=== PATIENT | female | born 1985 | race American Indian/Alaskan Native ===

== ENCOUNTER 2017-02-24 16:03 | Inpatient (IN) | payer MEDICAID ==
[2017-02-24] MEDS ORDERED: NORMODYNE IV ONE ×4 (16:16→17:13)
--- NOTE | 2017-02-24 16:38 | Emergency Department Report ---
ED General Adult HPI - General Chief complaint: High BP Stated complaint: BLOOD PRESSURE Time Seen by Provider: 02/24/17 16:28 Source: patient, EMS (ems notes not available at time of chart dictation), RN notes reviewed Mode of arrival: Ambulatory Limitations: No Limitations - History of Present Illness Initial comments: This is a 31-year-old female. She is previously known to me. Her pbx repairer is Dr. Rivera. The patient is 4, para 1. lmp September 22. Past medical history includes preeclampsia, hypertension, she is currently on methyldopa, just started last week. The patient is sent to the ER by her rubber compounder supervisor for evaluation of hypertension. The patient has no headache, neck pain, chest pain, abdominal pain and shortness of breath. She denies vaginal bleeding, irritative and obstructive urinary symptoms. -: unknown Consistency: constant Improves with: none Worsens with: none Associated Symptoms: denies other symptoms. denies: confusion, chest pain, cough, diaphoresis, fever/chills, headaches, loss of appetite, malaise, nausea/ vomiting, rash, seizure, shortness of breath, syncope, weakness - Related Data Allergies Allergy/AdvReac Type Severity Reaction Status Date / Time No Known Allergies Allergy Unverified 02/24/17 16:18 ED Review of Systems ROS: Stated complaint: BLOOD PRESSURE Other details as noted in HPI Constitutional: denies: fever Eyes: denies: vision change ENT: denies: epistaxis Respiratory: denies: cough Cardiovascular: denies: chest pain Gastrointestinal: denies: vomiting Genitourinary: denies: dysuria Musculoskeletal: denies: back pain Skin: denies: lesions Neurological: denies: headache Psychiatric: denies: anxiety ED Past Medical Hx - Past Medical History Hx Hypertension: Yes - Social History Smoking Status: Never Smoker ED Physical Exam - General Limitations: No Limitations General appearance: alert, in no apparent distress - Head Head exam: Present: atraumatic, normocephalic - Eye Eye exam: Present: normal appearance, PERRL, EOMI. Absent: nystagmus - ENT ENT exam: Present: normal exam, normal orophraynx, mucous membranes moist, normal external ear exam - Neck Neck exam: Present: normal inspection, full ROM. Absent: tenderness, meningismus - Respiratory Respiratory exam: Present: normal lung sounds bilaterally. Absent: respiratory distress, wheezes, rales, rhonchi, stridor, chest wall tenderness, accessory muscle use, decreased breath sounds - Cardiovascular Cardiovascular Exam: Present: regular rate, normal rhythm, normal heart sounds. Absent: bradycardia, tachycardia, irregular rhythm, systolic murmur, diastolic murmur, rubs, gallop - GI/Abdominal GI/Abdominal exam: Present: soft, other (uterus is appropriate for dates.). Absent: distended, tenderness, guarding, rebound, rigid, pulsatile mass - Extremities Exam Extremities exam: Present: normal inspection, full ROM, normal capillary refill , pedal edema. Absent: calf tenderness - Back Exam Back exam: Present: normal inspection, full ROM. Absent: tenderness, CVA tenderness (R), CVA tenderness (L), muscle spasm, paraspinal tenderness, vertebral tenderness - Neurological Exam Neurological exam: Present: alert, oriented X3, normal gait, other (Extraocular movements intact. Tongue midline. No facial droop. Facial sensation intact to light touch in the V1, V2, V3 distribution bilaterally. 5 and 5 strength in 4 extremities.. Sensation is intact to light touch in 4 extremities.). Absent : motor sensory deficit - Psychiatric Psychiatric exam: Present: normal affect, normal mood - Skin Skin exam: Present: warm, dry, intact, normal color. Absent: rash ED Course Vital Signs 02/24/17 02/24/17 02/24/17 16:04 16:10 16:44 Temperature 98.0 F Pulse Rate 64 Respiratory 20 20 16 Rate Blood Pressure 210/120 Blood Pressure 205/99 [Left] O2 Sat by Pulse 100 100 100 Oximetry 02/24/17 02/24/17 02/24/17 18:41 19:00 19:51 Temperature Pulse Rate 65 108 H 90 Respiratory 16 16 Rate Blood Pressure 187/104 Blood Pressure 194/105 178/109 [Left] O2 Sat by Pulse 100 100 Oximetry 02/24/17 02/24/17 02/24/17 20:20 20:39 21:27 Temperature Pulse Rate 90 90 90 Respiratory 20 16 Rate Blood Pressure 158/93 Blood Pressure 158/93 178/108 [Left] O2 Sat by Pulse 100 100 Oximetry 02/24/17 02/24/17 02/24/17 22:24 22:43 23:24 Temperature Pulse Rate 93 H 79 82 Respiratory 16 Rate Blood Pressure 200/122 200/122 Blood Pressure 170/100 [Left] O2 Sat by Pulse 100 Oximetry 02/24/17 23:39 Temperature Pulse Rate 87 Respiratory 16 Rate Blood Pressure Blood Pressure 186/100 [Left] O2 Sat by Pulse 100 Oximetry - Reevaluation(s) Reevaluation #1: 02/24/17 19:10 Differential diagnosis: hypertension, preeclampsia Assessment and plan: 31-year-old female who was found to be hypertensive, lower extremity edema, proteinuria, concerning for preeclampsia. She is started on magnesium sulfate infusion, given multiple doses of IV labetalol, and is initiated on a labetalol drip. Heart tones are noted on examination. The case is discussed with her covering rubber compounder supervisor, Dr. Genna Rivera, who authorizes admission to the labor and delivery unit for monitoring and further blood pressure control. The patient is asymptomatic at this time, has no chest pain or shortness of breath. ED Medical Decision Making - Lab Data Result diagrams: 02/24/17 16:38 02/24/17 16:38 Vital Signs 02/24/17 02/24/17 02/24/17 16:04 16:10 16:44 Temperature 98.0 F Pulse Rate 64 Respiratory 20 20 16 Rate Blood Pressure 210/120 Blood Pressure 205/99 [Left] O2 Sat by Pulse 100 100 100 Oximetry 02/24/17 18:41 Temperature Pulse Rate 65 Respiratory Rate Blood Pressure 187/104 Blood Pressure [Left] O2 Sat by Pulse Oximetry Labs 02/24/17 02/24/17 02/24/17 16:38 16:38 16:38 WBC 13.7 H RBC 5.51 H Hgb 12.8 Hct 40.3 MCV 73 L MCH 23 L MCHC 32 RDW 15.9 H Plt Count 250 Lymph % (Auto) 26.4 [place] % (Auto) 8.2 H Eos % (Auto) 0.5 Baso % (Auto) 0.2 Lymph # 3.6 [place] # 1.1 H Eos # 0.1 Baso # 0.0 Seg Neutrophils % 64.7 Seg Neutrophils # 8.9 H Fibrinogen Sodium 138 Potassium 4.5 Chloride 102.1 Carbon Dioxide 24 Anion Gap 16 BUN 10 Creatinine 0.6 L Estimated GFR > 60 BUN/Creatinine Ratio 16.66 Glucose 84 Calcium 8.9 Total Bilirubin Direct Bilirubin Indirect Bilirubin AST ALT Alkaline Phosphatase Total Protein Albumin Albumin/Globulin Ratio HCG, Quant Urine Color Yellow Urine Turbidity Clear Urine pH 6.0 Ur Specific [place] 1.015 Urine Protein 100 mg/dl Urine Glucose (UA) Neg Urine Ketones Neg Urine Blood Neg Urine Nitrite Neg Urine Bilirubin Neg Urine Urobilinogen < 2.0 Ur Leukocyte Esterase Neg Urine WBC (Auto) 4.0 Urine RBC (Auto) 0.0 U Epithel Cells (Auto) 2.0 Urine Mucus Few 02/24/17 02/24/17 02/24/17 16:38 16:38 16:38 WBC RBC Hgb Hct MCV MCH MCHC RDW Plt Count Lymph % (Auto) [place] % (Auto) Eos % (Auto) Baso % (Auto) Lymph # [place] # Eos # Baso # Seg Neutrophils % Seg Neutrophils # Fibrinogen 583 H Sodium Potassium Chloride Carbon Dioxide Anion Gap BUN Creatinine Estimated GFR BUN/Creatinine Ratio Glucose Calcium Total Bilirubin 0.20 Direct Bilirubin < 0.2 Indirect Bilirubin 0.0 AST 19 ALT 17 Alkaline Phosphatase 72 Total Protein 6.7 Albumin 3.1 L Albumin/Globulin Ratio 0.9 HCG, Quant 10023 H Urine Color Urine Turbidity Urine pH Ur Specific [place] Urine Protein Urine Glucose (UA) Urine Ketones Urine Blood Urine Nitrite Urine Bilirubin Urine Urobilinogen Ur Leukocyte Esterase Urine WBC (Auto) Urine RBC (Auto) U Epithel Cells (Auto) Urine Mucus Critical Care Time: Yes Critical care time in (mins) excluding proc time.: 35 Critical care attestation.: If time is entered above; I have spent that time in minutes in the direct care of this critically ill patient, excluding procedure time. Critical Care Time: Critical care time included multiple bedside evaluations, interpretation of laboratory studies, time spent managing a patient with preecclampsia requiring consultation with gynecology, infusion of IV labetalol. This does not include procedure time. ED Disposition Clinical Impression: Hypertension in , preeclampsia Qualifiers: Trimester: unspecified trimester Qualified Code(s): O14.90 - Unspecified pre- eclampsia, unspecified trimester Disposition: OP ADMITTED IP TO THIS HOSP Is pt being admited?: Yes Condition: Good
[2017-02-24] MEDS ORDERED: MAGNESIUM SULFATE 40GM/1000ML 40 GM/1,000 ML BAG IV SCH (17:00)
[2017-02-24 17:02] LABS: Bilirubin,Urine NEG (Negative); Blood,Urine NEG (Negative); Ketones,Urine NEG (Negative); Leukocyte Esterase,Urine NEG (Negative); Mucus,Urine FEW /HPF; Nitrite,Urine NEG (Negative); Urobilinogen,Urine < 2.0 mg/dL (<2.0)
[2017-02-24 17:05] LABS: Anion Gap 16 mmol/L; BUN/Creatinine Ratio 16.66; Blood Urea Nitrogen 10 mg/dL (7-17); Calcium 8.9 mg/dL (8.4-10.2); Carbon Dioxide 24 mmol/L (22-30); Chloride 102.1 mmol/L (98-107); Eosinophils % (Auto) 0.5 % (0.0-4.3); Glucose 84 mg/dL (65-100); Potassium 4.5 mmol/L (3.6-5.0); Sodium 138 mmol/L (137-145)
[2017-02-24 17:15] LABS: Basophils % (Auto) 0.2 % (0.0-1.8); Hematocrit 40.3 % (30.3-42.9); Hemoglobin 12.8 gm/dl (10.1-14.3); Mean Corpuscular HGB Conc 32 % (30-34); Mean Corpuscular Volume 73 fl (79-97); Platelet Count 250 K/mm3 (140-440); Red Blood Count 5.51 M/mm3 (3.65-5.03); Red Cell Distribution Width 15.9 % (13.2-15.2); White Blood Count 13.7 K/mm3 (4.5-11.0)
--- NOTE | 2017-02-24 17:18 | Admit Criteria Form ---
Admission Criteria Documentation: HYPERTENSIVE DISORDERS OF Clinical Indications for Admission to Inpatient Care (Place 'X' for any and all applicable criteria): Admission is indicated for ANY ONE of the following (1)(2)(3)(4)(5): [ ]I. Eclampsia[A][B] [X]II. Preeclampsia with severe features (ie, severe preeclampsia) indicated by ANY ONE of the following[B][C]: [X]a) SBP greater than or equal to 160 mm Hg or DBP greater than or equal to 110 mm Hg on 2 occasions at least 4 hours apart while the patient is at bed rest (unless antihypertensive therapy is initiated before this time) [ ]b) Platelet count less than 100,000/mm3 (100 x109/L) [ ]c) Impaired liver function as indicated by ANY ONE of the following: [ ]i. Elevation of liver enzymes (eg, SGOT, SGPT) to twice normal concentration [ ]ii. Severe persistent right upper quadrant or epigastric pain unresponsive to medication and not accounted for by alternative diagnosis [ ]d) Progressive renal insufficiency indicated by ANY ONE of the following: [ ]i. Serum creatinine concentration greater than 1.1 mg/dL (97 micromoles/L) [ ]ii. Doubling (from baseline) of serum creatinine concentration in the absence of other renal disease [ ]e) Pulmonary edema [ ]f) Cerebral or visual symptoms (eg, headache, Altered mental status , changes in vision) [ ]III. Delivery planned due to nonsevere preeclampsia as indicated by ALL of the following: [ ]a) Nonsevere preeclampsia present as indicated by ALL of the following: [ ]i. Woman at 20 or more weeks' gestation [ ]ii. New-onset SBP greater than or equal to 140 mm Hg but less than 160 mm Hg or DBP greater than or equal to 90 mm Hg but less than 110 mm Hg on 2 occasions at least 4 hours apart [ ]iii. Proteinuria present as indicated by ANY ONE of the following: [ ]A. Urinary protein excretion greater than or equal to 300 mg per 24-hour collection (or this amount extrapolated from a shorter timed collection) [ ]B. Protein/creatinine ratio greater than or equal to 0.3 (measured in mg/dL) [ ]b) Delivery indicated due to ANY ONE of the following: [ ]i. Gestational age of 37 0/7 weeks or more [ ]ii. Gestational age of 34 0/7 weeks to 36 6/7 weeks and ANY ONE of the following: [ ]A. Progressive labor or rupture of membranes [ ]B. Abnormal biophysical profile [ ]C. Suspected abruptio placentae [ ]D. Ultrasound estimate of weight less than 5th percentile [ ]E. Other indication for delivery [ ]IV. Delivery planned due to gestational hypertension[D] because of ANY ONE of the following: [ ]a) Delivery indicated because gestational age of 37 0/7 weeks or more has been reached [ ]b) Gestational age of 34 0/7 weeks to 36 6/7 weeks for which delivery is indicated because of ANY ONE of the following: [ ]i. Progressive labor or rupture of membranes [ ]ii. Abnormal biophysical profile [ ]iii. Suspected abruptio placentae [ ]iv. Ultrasound estimate of weight less than 5th percentile [ ]v. Other indication for delivery [ ]V. Hypertension of any category[E] during with acute end organ damage as indicated by ANY ONE of the following: [ ]a) Hypertensive encephalopathy (eg, Altered mental status that is severe or persistent )(11) [ ]b) Cerebral infarction [ ]c) Intracranial hemorrhage [ ]d) Myocardial ischemia or infarction [ ]e) Pulmonary edema [ ]f) Aortic dissection [ ]g) Seizure [ ]h) Papilledema [ ]i) Microangiopathic hemolytic anemia [ ]j) Visual loss [ ]k) Acute renal failure [ ]) Hypertension during with evidence of compromise as indicated by ANY ONE of the following: [ ]a) Abnormal heart tones [ ]b) Abnormal stress test [ ]c) Abnormal biophysical profile [X]VII) patient requires inpatient control of blood pressure indicated by (see Hypertensive Disorders of : Observation Care [facility] guideline as appropriate) ALL of the following: [X]a) SBP is greater than or equal to 160 mm Hg or DBP is greater than or equal to 105 mm Hg [X]b) Blood pressure cannot be reduced below these levels with outpatient or observation care treatment (eg, oral medications not effective) Extended stay beyond goal length of stay may be needed for : [ ]a) Eclampsia [ ]b) Ongoing compromise [ ]c) Complications of hypertensive disorders of [ ]d) Active comorbidities (eg, heart failure, poorly controlled diabetes, renal insufficiency) [ ]e) Persistent hypertension [ ]f) Delivery planned The original [facility] content created by [facility] has been revised. The portions of the content which have been revised are identified through the use of italic text or in bold, and [facility] has neither reviewed nor approved the modified material. All other unmodified content is copyright [facility]. Please see references footnoted in the original [facility] edition 2016. Admission Criteria Met: Yes
[2017-02-24 17:21] LABS: Mean Corpuscular Hemoglobin 23 pg (28-32)
[2017-02-24 18:34] LABS: Alanine Aminotransferase 17 units/L (7-56); Albumin 3.1 g/dL (3.9-5); Albumin/Globulin Ratio 0.9 %; Alkaline Phosphatase 72 units/L (35-129); Bilirubin,Direct < 0.2 mg/dL (0-0.2); Total Protein 6.7 g/dL (6.3-8.2)
[2017-02-24] MEDS: NORMODYNE 200 MG in D5W 160 ML IV ONE ×2 (18:41→20:39)
[2017-02-24] MEDS ORDERED: APRESOLINE IV PRN (22:31)
[2017-02-24] MEDS: NORMODYNE 200 MG in D5W 160 ML IV SCH (22:43)
[2017-02-24] MEDS: NORMODYNE PO SCH (23:24)
[2017-02-25] MEDS: NORMODYNE 200 MG in D5W 160 ML IV SCH ×9 (00:24→18:28)
[2017-02-25] MEDS: LACTATED RINGERS 1,000 ML IV SCH ×4 (00:58→23:50)
[2017-02-25] MEDS: MAGNESIUM SULFATE 40GM/1000ML 40 GM/1,000 ML BAG IV SCH ×2 (07:30→12:45)
--- NOTE | 2017-02-25 11:29 | History and Physical Report ---
History of Present Illness Date of examination: 02/25/17 Date of admission: 02/24/17 18:34 Chief complaint: elevated blood pressures History of present illness: 31y/o @ 22 weeks jaspal was admitted from the ED after having elevated blood pressures while receiving an ultrasound at her [facility] visit. The patient is without any significant complaints besides intermittent nausea. She has history of preeclampsia with her previous but denies chronic hypertension. Secondary to severe blood pressures, the patient was started on a labetalol and magnesium drip. She was admitted to the ICU for further evaluation. 24 hr urine collection in process. PIH wnl Past History Past Medical History: other (preeclampsia) Past Surgical History: no surgical history Social history: no significant social history - Obstetrical History : 4 Para: 1 Hx # Term Pregnancies: 1 Number of Pregnancies: 0 Spontaneous Abortions: 1 Induced : 1 Number of Living Children: 1 Medications and Allergies Allergies Allergy/AdvReac Type Severity Reaction Status Date / Time No Known Allergies Allergy Unverified 02/24/17 16:18 Active Meds: Active Medications Hydralazine HCl (Apresoline) 5 mg IV Q30MIN PRN PRN Reason: Hypertension Labetalol HCl 200 mg/ Dextrose 200 mls @ 120 mls/hr IV TITR SYDNIE; 2 MG/MIN PRN Reason: Protocol Last Admin: 02/25/17 08:25 Dose: 2 mg/min, 120 mls/hr Lactated Ringer's (Lactated Ringers) 1,000 mls @ 125 mls/hr IV DIRECT SYDNIE Last Admin: 02/25/17 08:27 Dose: 125 mls/hr Magnesium Sulfate (Magnesium Sulfate 40gm/1000ml) 40 gm in 1,000 mls @ 50 mls/ hr IV DIRECT SYDNIE PRN Reason: 2 GM/HR Labetalol HCl (Normodyne) 200 mg PO BID SYDNIE Last Admin: 02/24/17 23:24 Dose: 200 mg Review of Systems All systems: negative Genitourinary: no vaginal bleeding, no leakage of fluid, no contractions - Vital Signs Vital signs: Vital Signs Resp BP Pulse Ox 20 210/120 100 02/24/17 16:04 02/24/17 16:04 02/24/17 16:04 Temp Pulse Resp BP Pulse Ox 97.6 F 76 16 142/93 95 02/25/17 07:41 02/25/17 11:00 02/25/17 11:00 02/25/17 11:00 02/25/17 11:00 - Physical Exam Breasts: Positive: deferred Cardiovascular: Regular rate Lungs: Positive: Clear to auscultation Abdomen: Positive: normal appearance, soft Results Result Diagrams: 02/24/17 16:38 02/24/17 16:38 All other labs normal. Assessment and Plan - Patient Problems (1) Hypertension in , preeclampsia Current Visit: Yes Status: Acute Qualifiers: Trimester: unspecified trimester Qualified Code(s): O14.90 - Unspecified pre-eclampsia, unspecified trimester Plan to address problem: if the patient's blood pressures can be managed with po antihypertensives, she can be transferred to [facility] awaiting results of 24hr urine collection
[2017-02-25] MEDS: NORMODYNE PO SCH ×2 (11:31→22:00)
[2017-02-25] MEDS: ZOFRAN IV PRN (15:15)
--- NOTE | 2017-02-25 17:02 | Consultation ---
History of Present Illness Consult date: 02/25/17 Requesting physician: AMAURI BURRIS Reason for consult: other (Pre-Ecclampsia) History of present illness: PULMONARY/CCM CONSULT NOTE (Full dictation # [id number]) Please see dictated notes for full details Past History Social history: no significant social history Medications and Allergies Allergies Allergy/AdvReac Type Severity Reaction Status Date / Time No Known Allergies Allergy Unverified 02/24/17 16:18 Active Meds: Active Medications Hydralazine HCl (Apresoline) 5 mg IV Q30MIN PRN PRN Reason: Hypertension Labetalol HCl 200 mg/ Dextrose 200 mls @ 120 mls/hr IV TITR SYNDIE; 2 MG/MIN PRN Reason: Protocol Last Admin: 02/25/17 14:20 Dose: 1 mg/min, 60 mls/hr Lactated Ringer's (Lactated Ringers) 1,000 mls @ 125 mls/hr IV DIRECT SYDNIE Last Admin: 02/25/17 15:47 Dose: 125 mls/hr Magnesium Sulfate (Magnesium Sulfate 40gm/1000ml) 40 gm in 1,000 mls @ 50 mls/ hr IV DIRECT SYDNIE PRN Reason: 2 GM/HR Last Admin: 02/25/17 12:45 Dose: 2 gm/hr, 50 mls/hr Labetalol HCl (Normodyne) 200 mg PO BID SYDNIE Last Admin: 02/25/17 11:31 Dose: 200 mg Ondansetron HCl (Zofran) 4 mg IV Q6H PRN PRN Reason: Nausea And Vomiting Last Admin: 02/25/17 15:15 Dose: 4 mg Physical Examination Vital signs: Vital Signs Resp BP Pulse Ox 20 210/120 100 02/24/17 16:04 02/24/17 16:04 02/24/17 16:04 Results - Laboratory Findings CBC and BMP: 02/24/17 16:38 02/24/17 16:38
[2017-02-26] MEDS: NORMODYNE 200 MG in D5W 160 ML IV SCH ×7 (00:13→23:34)
[2017-02-26] MEDS: LACTATED RINGERS 1,000 ML IV SCH ×2 (06:21→23:09)
--- NOTE | 2017-02-26 09:21 | Consultation ---
CONSULTING PHYSICIAN: Daylin Rivera MD REASON FOR CONSULTATION: Preeclampsia. Uncontrolled hypertension. CHIEF COMPLAINT AND HISTORY OF PRESENT ILLNESS: The patient is a 31-year-old female with past medical history significant for diagnosis of preeclampsia. She is 4, para 1. She is supposed to be on methyldopa at home, recently started. She was brought into the ER, sent in by her SCIENCE TUTOR for evaluation of hypertension. The patient denied headache, neck pain, chest pain, abdominal pain. She did admit to some nausea at home. She denied any bleeding, no vaginal bleeding, no new abdominal pain, no dysuria. She was evaluated in the Emergency Room. She was indeed hypertensive. She was started on labetalol drip, also started on IV magnesium infusion. A quick screen was done of the tone. She was admitted to the intensive care unit for close observation. When I stopped by to see her, she was just waking up, she had tried some clear liquids earlier in the day and threw those up and then she had full liquids later on and just woke up from them. She was feeling a little nausea, but no vomiting. Denied chest pains. Denied palpitations. Denied new abdominal pains. No reported seizures. That really is as much of the history of presentation as I have. PAST MEDICAL HISTORY: Significant for preeclampsia, significant for hypertension. PAST SURGICAL HISTORY: None. MEDICATIONS: She was on at the time I stopped by to see her according to the medication administration record included the following: Hydralazine 5 mg IV q. 30 minutes p.r.n. hypertension systolic greater than, 170, diastolic greater than 110, labetalol drip was going at 1 mg per minute, she is also on labetalol 200 mg p.o. b.i.d., magnesium sulfate had been replaced, she had a drip going at 2 gm per hour. ALLERGIES: No known drug allergies. DIET: Gained weight as appropriate for her , slightly obese. Denies any new onset changes otherwise. FAMILY AND SOCIAL HISTORY: Lives in the community. Denies alcohol, tobacco, or illicit drug use or abuse history now or in the past. REVIEW OF SYSTEMS: No loss of consciousness. No new onset focal weakness. No gross hematochezia or melena. No gross hematuria or dysuria. No hematemesis. No hemoptysis. She did have an episode of emesis earlier on, I believe at home prior to coming in. No new onset seizures. Complete review of systems was obtained. Pertinent positives and/or negatives as in body of history above, otherwise they are noncontributory. PHYSICAL EXAMINATION: VITAL SIGNS: At presentation in the Emergency Room, she was afebrile, temperature 98.0, pulse was 64, respiratory rate was 28, blood pressure was 210/120, oxygen sats were 100%, inspired oxygen concentration was not recorded. She is currently on 2 L nasal cannula, 100% O2 sats. HEAD, EYES, EARS, NOSE AND THROAT: Pupils equal, round about 4 mm. Reactive to light. Extraocular muscle movements are intact. Grossly, no palpable lymph nodes in the supraclavicular or submandibular lymph node chains. LUNGS: Auscultation of both lung allen are unremarkable. Lungs are clear to auscultation on palpation bilaterally. CARDIOVASCULAR: Heart sounds 1 and 2 were heard. They were regular in rate and rhythm at time of my evaluation. ABDOMEN: Soft. Bowel sounds are positive, nontender. EXTREMITIES: Without overt digital clubbing, cyanosis, or pedal edema. No scleral icterus and she does not look distressed clinically. LABORATORY DATA: From my review are as follows: White count on admission 13,700 with a hemoglobin of 12.8, hematocrit of 40.3 and platelets 250,000, fibrinogen 583. Serum sodium was 138, potassium 4.5, chloride 102, bicarb 24, BUN 10, creatinine 0.6, glucose was 84, albumin 3.1. Beta hCG was appropriately elevated. Urinalysis negative for leukocyte esterase and nitrite. No significant proteinuria. No microbiology studies. No radiographic studies. ASSESSMENT AND PLAN: We have a young lady in with symptoms consistent with preeclampsia, appears to be responding to treatments. In light of her nausea, we will begin her on Zofran. I have discussed the case with her SCIENCE TUTOR physician and I have suggested monitoring. She is going to order that p.r.n. or sequentially I think she is going to schedule it q. 12 hours. Oxygen will be weaned off, keeping sats greater than 94%. Aspiration precautions will be maintained. She is appropriately on deep vein thrombosis prophylaxis in the form of SCDs. We will put her on GI prophylaxis. Flu and pneumonia vaccination will be per protocol. Thank you very much for the consult Dr. Rivera. We will observe her in the intensive care unit overnight. Hopefully, she can transfer to the SCIENCE TUTOR for by tomorrow. We will make further recommendations as picture progresses/becomes clearer. JOB# [id number] REBECA/YOLI
[2017-02-26] MEDS: MAGNESIUM SULFATE 40GM/1000ML 40 GM/1,000 ML BAG IV SCH (09:25)
[2017-02-26] MEDS: PROTONIX PO SCH (09:49)
[2017-02-26] MEDS: ZOFRAN IV PRN (09:50)
[2017-02-26] MEDS: NORMODYNE PO SCH ×2 (09:51→21:41)
--- NOTE | 2017-02-26 10:57 | Ultrasound Report ---
ULTRASOUND OB LIMITED History: Preeclampsia Technique: Transabdominal ultrasound with Doppler interrogation. Gestation: Single Position: Cephalic Amniotic Fluid: Within normal limits KYLE = cm Placenta: Right lateral Placental Grade: 0 Heart Rate: 120 BPM Cervical length: 3.6 cm (Normal > 3 cm)
--- NOTE | 2017-02-26 11:39 | Progress Note ---
Assessment and Plan - Patient Problems (1) Hypertension in , preeclampsia Current Visit: Yes Status: Acute Qualifiers: Trimester: unspecified trimester Qualified Code(s): O14.90 - Unspecified pre-eclampsia, unspecified trimester Plan to address problem: suspect that patient is likely a chronic hypertensive will discontinue magnesium can be transferred to step down once labetalol drip is discontinued Subjective - Subjective Date of service: 02/26/17 Interval history: Patient reports feeling better today. Patient has had considerable improvement in blood pressures. Still experiencing intermittent nausea likely associated with the . Attempting to wean off the labetalol drip and transition to po meds. 24hr urine pending. Patient reports: no new complaints Objective - Vital Signs Vital Signs: Vital Signs - 12hr 02/25/17 02/25/17 02/26/17 23:41 23:51 00:00 Temperature 97.7 F Pulse Rate 78 78 77 Pulse Rate [ From Monitor] Respiratory 10 L 15 11 L Rate Blood Pressure 157/99 151/98 164/94 O2 Sat by Pulse 98 97 95 Oximetry 02/26/17 02/26/17 02/26/17 00:11 00:13 00:21 Temperature Pulse Rate 92 H 73 Pulse Rate [ From Monitor] Respiratory 18 Rate Blood Pressure 164/94 164/94 167/94 O2 Sat by Pulse 99 98 Oximetry 02/26/17 02/26/17 02/26/17 00:30 00:41 00:51 Temperature Pulse Rate 78 78 79 Pulse Rate [ From Monitor] Respiratory 14 19 19 Rate Blood Pressure 160/98 160/98 167/98 O2 Sat by Pulse 94 99 99 Oximetry 02/26/17 02/26/17 02/26/17 01:01 01:11 01:21 Temperature Pulse Rate 78 76 79 Pulse Rate [ From Monitor] Respiratory 17 17 20 Rate Blood Pressure 170/91 167/98 168/93 O2 Sat by Pulse 95 97 97 Oximetry 02/26/17 02/26/17 02/26/17 01:30 01:41 01:51 Temperature Pulse Rate 78 87 91 H Pulse Rate [ From Monitor] Respiratory 13 19 21 Rate Blood Pressure 166/94 166/94 150/81 O2 Sat by Pulse 95 97 97 Oximetry 02/26/17 02/26/17 02/26/17 02:00 02:11 02:21 Temperature Pulse Rate 75 79 79 Pulse Rate [ From Monitor] Respiratory 17 16 15 Rate Blood Pressure 154/92 154/92 162/98 O2 Sat by Pulse 95 98 97 Oximetry 02/26/17 02/26/17 02/26/17 02:30 02:41 02:51 Temperature Pulse Rate 77 76 75 Pulse Rate [ From Monitor] Respiratory 13 12 18 Rate Blood Pressure 168/96 168/96 165/90 O2 Sat by Pulse 96 99 98 Oximetry 02/26/17 02/26/17 02/26/17 03:00 03:11 03:21 Temperature Pulse Rate 80 81 81 Pulse Rate [ From Monitor] Respiratory 16 17 17 Rate Blood Pressure 175/100 175/100 158/97 O2 Sat by Pulse 96 97 98 Oximetry 02/26/17 02/26/17 02/26/17 03:30 03:41 03:44 Temperature 98.3 F Pulse Rate 78 76 Pulse Rate [ From Monitor] Respiratory 16 16 Rate Blood Pressure 157/95 157/95 O2 Sat by Pulse 95 97 Oximetry 02/26/17 02/26/17 02/26/17 03:51 04:00 04:11 Temperature Pulse Rate 76 78 80 Pulse Rate [ 87 From Monitor] Respiratory 16 16 17 Rate Blood Pressure 155/91 151/94 151/94 O2 Sat by Pulse 97 95 97 Oximetry 02/26/17 02/26/17 02/26/17 04:21 04:30 04:41 Temperature Pulse Rate 81 79 80 Pulse Rate [ From Monitor] Respiratory 17 17 16 Rate Blood Pressure 153/87 148/93 148/93 O2 Sat by Pulse 97 95 97 Oximetry 02/26/17 02/26/17 02/26/17 04:51 05:00 05:11 Temperature Pulse Rate 80 78 80 Pulse Rate [ From Monitor] Respiratory 15 16 15 Rate Blood Pressure 153/95 147/88 147/88 O2 Sat by Pulse 97 96 98 Oximetry 02/26/17 02/26/17 02/26/17 05:21 05:30 05:41 Temperature Pulse Rate 81 78 79 Pulse Rate [ From Monitor] Respiratory 16 16 17 Rate Blood Pressure 149/91 147/88 147/88 O2 Sat by Pulse 98 96 97 Oximetry 02/26/17 02/26/17 02/26/17 05:51 06:01 06:11 Temperature Pulse Rate 85 68 77 Pulse Rate [ From Monitor] Respiratory 13 17 19 Rate Blood Pressure 153/88 149/89 149/89 O2 Sat by Pulse 98 97 97 Oximetry 02/26/17 02/26/17 02/26/17 06:21 06:30 06:41 Temperature Pulse Rate 76 76 74 Pulse Rate [ From Monitor] Respiratory 20 18 21 Rate Blood Pressure 148/90 151/87 151/87 O2 Sat by Pulse 97 93 95 Oximetry 02/26/17 02/26/17 02/26/17 06:51 07:00 07:11 Temperature Pulse Rate 76 77 78 Pulse Rate [ From Monitor] Respiratory 18 17 20 Rate Blood Pressure 144/85 143/82 143/82 O2 Sat by Pulse 96 92 96 Oximetry 02/26/17 02/26/17 02/26/17 07:17 07:21 07:30 Temperature 97.8 F Pulse Rate 78 77 Pulse Rate [ From Monitor] Respiratory 15 15 Rate Blood Pressure 135/77 143/88 O2 Sat by Pulse 98 94 Oximetry 02/26/17 02/26/17 02/26/17 07:41 07:51 08:00 Temperature Pulse Rate 78 79 80 Pulse Rate [ From Monitor] Respiratory 21 18 17 Rate Blood Pressure 143/88 147/90 152/91 O2 Sat by Pulse 97 97 98 Oximetry 02/26/17 02/26/17 02/26/17 08:11 08:21 08:30 Temperature Pulse Rate 79 79 79 Pulse Rate [ From Monitor] Respiratory 17 18 18 Rate Blood Pressure 152/91 148/89 151/92 O2 Sat by Pulse 96 97 93 Oximetry 02/26/17 02/26/17 02/26/17 08:41 08:51 09:01 Temperature Pulse Rate 84 79 76 Pulse Rate [ From Monitor] Respiratory 19 17 12 Rate Blood Pressure 151/92 152/91 138/80 O2 Sat by Pulse 96 96 93 Oximetry 02/26/17 02/26/17 02/26/17 09:11 09:21 09:25 Temperature Pulse Rate 76 79 Pulse Rate [ From Monitor] Respiratory 15 20 Rate Blood Pressure 138/80 130/66 138/82 O2 Sat by Pulse 98 97 Oximetry 02/26/17 02/26/17 02/26/17 09:30 09:41 09:51 Temperature Pulse Rate 79 78 78 Pulse Rate [ From Monitor] Respiratory 17 16 18 Rate Blood Pressure 136/82 136/82 144/75 O2 Sat by Pulse 94 96 96 Oximetry 02/26/17 02/26/17 02/26/17 10:00 10:11 10:21 Temperature Pulse Rate 79 81 81 Pulse Rate [ From Monitor] Respiratory 18 17 18 Rate Blood Pressure 126/72 126/72 121/65 O2 Sat by Pulse 93 95 95 Oximetry 02/26/17 02/26/17 02/26/17 10:30 10:41 10:51 Temperature Pulse Rate 85 80 83 Pulse Rate [ From Monitor] Respiratory 18 16 15 Rate Blood Pressure 125/72 125/72 126/74 O2 Sat by Pulse 92 95 96 Oximetry 02/26/17 02/26/17 02/26/17 11:00 11:11 11:21 Temperature Pulse Rate 78 81 77 Pulse Rate [ From Monitor] Respiratory 16 17 19 Rate Blood Pressure 128/72 128/72 132/72 O2 Sat by Pulse 91 94 96 Oximetry
[2017-02-26 12:41] LABS: Hemoglobin 11.5 gm/dl (10.1-14.3); Mean Corpuscular HGB Conc 32 % (30-34); Mean Corpuscular Volume 73 fl (79-97); Platelet Count 239 K/mm3 (140-440); Red Blood Count 4.96 M/mm3 (3.65-5.03); Red Cell Distribution Width 15.9 % (13.2-15.2)
[2017-02-26 12:43] LABS: Mean Corpuscular Hemoglobin 23 pg (28-32)
--- NOTE | 2017-02-26 13:01 | Progress Note ---
Assessment and Plan - Patient Problems (1) Obesity Current Visit: Yes Status: Acute Qualifiers: Obesity type: O Obesity severity: O Plan to address problem: - weight loss post delivery counselled - may need sleep clinic evaluation outpatient (2) Hypertension in , preeclampsia Current Visit: Yes Status: Acute Qualifiers: Trimester: unspecified trimester Qualified Code(s): O14.90 - Unspecified pre-eclampsia, unspecified trimester Plan to address problem: - remains on IV labetalol - titrate oral antihypertensives - monitoring per attending - other care per attending / other consultants (3) Discharge planning issues Current Visit: Yes Status: Acute Plan to address problem: - she remains critically ill on life sustaining interventions including IV antihypertensives and at risk for further deterioration including .... 33' CCT Subjective Date of service: 02/26/17 Principal diagnosis: Pre-Ecclampsia Interval history: Seen and examined at bedside; 24 hour events reviewed; nursing and respiratory care staff consulted; no adverse overnight events reported to me; feels better today; no emesis or overt aspiration; denies acute chest pains; monitoring insignificant so far Objective Vital Signs - 12hr 02/26/17 02/26/17 02/26/17 01:11 01:21 01:30 Temperature Pulse Rate 76 79 78 Pulse Rate [ From Monitor] Respiratory 17 20 13 Rate Blood Pressure 167/98 168/93 166/94 O2 Sat by Pulse 97 97 95 Oximetry 02/26/17 02/26/17 02/26/17 01:41 01:51 02:00 Temperature Pulse Rate 87 91 H 75 Pulse Rate [ From Monitor] Respiratory 19 21 17 Rate Blood Pressure 166/94 150/81 154/92 O2 Sat by Pulse 97 97 95 Oximetry 02/26/17 02/26/17 02/26/17 02:11 02:21 02:30 Temperature Pulse Rate 79 79 77 Pulse Rate [ From Monitor] Respiratory 16 15 13 Rate Blood Pressure 154/92 162/98 168/96 O2 Sat by Pulse 98 97 96 Oximetry 02/26/17 02/26/17 02/26/17 02:41 02:51 03:00 Temperature Pulse Rate 76 75 80 Pulse Rate [ From Monitor] Respiratory 12 18 16 Rate Blood Pressure 168/96 165/90 175/100 O2 Sat by Pulse 99 98 96 Oximetry 02/26/17 02/26/17 02/26/17 03:11 03:21 03:30 Temperature Pulse Rate 81 81 78 Pulse Rate [ From Monitor] Respiratory 17 17 16 Rate Blood Pressure 175/100 158/97 157/95 O2 Sat by Pulse 97 98 95 Oximetry 02/26/17 02/26/17 02/26/17 03:41 03:44 03:51 Temperature 98.3 F Pulse Rate 76 76 Pulse Rate [ From Monitor] Respiratory 16 16 Rate Blood Pressure 157/95 155/91 O2 Sat by Pulse 97 97 Oximetry 02/26/17 02/26/17 02/26/17 04:00 04:11 04:21 Temperature Pulse Rate 78 80 81 Pulse Rate [ 87 From Monitor] Respiratory 16 17 17 Rate Blood Pressure 151/94 151/94 153/87 O2 Sat by Pulse 95 97 97 Oximetry 02/26/17 02/26/17 02/26/17 04:30 04:41 04:51 Temperature Pulse Rate 79 80 80 Pulse Rate [ From Monitor] Respiratory 17 16 15 Rate Blood Pressure 148/93 148/93 153/95 O2 Sat by Pulse 95 97 97 Oximetry 02/26/17 02/26/17 02/26/17 05:00 05:11 05:21 Temperature Pulse Rate 78 80 81 Pulse Rate [ From Monitor] Respiratory 16 15 16 Rate Blood Pressure 147/88 147/88 149/91 O2 Sat by Pulse 96 98 98 Oximetry 02/26/17 02/26/17 02/26/17 05:30 05:41 05:51 Temperature Pulse Rate 78 79 85 Pulse Rate [ From Monitor] Respiratory 16 17 13 Rate Blood Pressure 147/88 147/88 153/88 O2 Sat by Pulse 96 97 98 Oximetry 02/26/17 02/26/17 02/26/17 06:01 06:11 06:21 Temperature Pulse Rate 68 77 76 Pulse Rate [ From Monitor] Respiratory 17 19 20 Rate Blood Pressure 149/89 149/89 148/90 O2 Sat by Pulse 97 97 97 Oximetry 02/26/17 02/26/17 02/26/17 06:30 06:41 06:51 Temperature Pulse Rate 76 74 76 Pulse Rate [ From Monitor] Respiratory 18 21 18 Rate Blood Pressure 151/87 151/87 144/85 O2 Sat by Pulse 93 95 96 Oximetry 02/26/17 02/26/17 02/26/17 07:00 07:11 07:17 Temperature 97.8 F Pulse Rate 77 78 Pulse Rate [ From Monitor] Respiratory 17 20 Rate Blood Pressure 143/82 143/82 O2 Sat by Pulse 92 96 Oximetry 02/26/17 02/26/17 02/26/17 07:21 07:30 07:41 Temperature Pulse Rate 78 77 78 Pulse Rate [ From Monitor] Respiratory 15 15 21 Rate Blood Pressure 135/77 143/88 143/88 O2 Sat by Pulse 98 94 97 Oximetry 02/26/17 02/26/17 02/26/17 07:51 08:00 08:11 Temperature Pulse Rate 79 80 79 Pulse Rate [ From Monitor] Respiratory 18 17 17 Rate Blood Pressure 147/90 152/91 152/91 O2 Sat by Pulse 97 98 96 Oximetry 02/26/17 02/26/17 02/26/17 08:21 08:30 08:41 Temperature Pulse Rate 79 79 84 Pulse Rate [ From Monitor] Respiratory 18 18 19 Rate Blood Pressure 148/89 151/92 151/92 O2 Sat by Pulse 97 93 96 Oximetry 02/26/17 02/26/17 02/26/17 08:51 09:01 09:11 Temperature Pulse Rate 79 76 76 Pulse Rate [ From Monitor] Respiratory 17 12 15 Rate Blood Pressure 152/91 138/80 138/80 O2 Sat by Pulse 96 93 98 Oximetry 02/26/17 02/26/17 02/26/17 09:21 09:25 09:30 Temperature Pulse Rate 79 79 Pulse Rate [ From Monitor] Respiratory 20 17 Rate Blood Pressure 130/66 138/82 136/82 O2 Sat by Pulse 97 94 Oximetry 02/26/17 02/26/17 02/26/17 09:41 09:51 10:00 Temperature Pulse Rate 78 78 79 Pulse Rate [ From Monitor] Respiratory 16 18 18 Rate Blood Pressure 136/82 144/75 126/72 O2 Sat by Pulse 96 96 93 Oximetry 02/26/17 02/26/17 02/26/17 10:11 10:21 10:30 Temperature Pulse Rate 81 81 85 Pulse Rate [ From Monitor] Respiratory 17 18 18 Rate Blood Pressure 126/72 121/65 125/72 O2 Sat by Pulse 95 95 92 Oximetry 02/26/17 02/26/17 02/26/17 10:41 10:51 11:00 Temperature Pulse Rate 80 83 78 Pulse Rate [ From Monitor] Respiratory 16 15 16 Rate Blood Pressure 125/72 126/74 128/72 O2 Sat by Pulse 95 96 91 Oximetry 02/26/17 02/26/17 02/26/17 11:11 11:21 12:00 Temperature 97.7 F Pulse Rate 81 77 Pulse Rate [ From Monitor] Respiratory 17 19 Rate Blood Pressure 128/72 132/72 O2 Sat by Pulse 94 96 Oximetry Constitutional: no acute distress, alert Eyes: non-icteric ENT: oropharynx moist Neck: supple, no lymphadenopathy Effort: normal Ascultation: Bilateral: clear Cardiovascular: regular rate and rhythm Gastrointestinal: normoactive bowel sounds, soft, non-tender, non-distended Integumentary: normal Extremities: no cyanosis, no edema, pink and warm, edema Neurologic: normal mental status, non-focal exam, pupils equal and round, motor strength normal and Psychiatric: mood appropriate, affect normal CBC and BMP: 02/26/17 12:15 02/26/17 12:15 Abnormal lab findings: Abnormal Labs 02/26/17 12:15 WBC 15.0 H MCV 73 L MCH 23 L RDW 15.9 H
[2017-02-26 13:05] LABS: Alanine Aminotransferase 12 units/L (7-56); Albumin 2.7 g/dL (3.9-5); Albumin/Globulin Ratio 1.1 %; BUN/Creatinine Ratio 11.66; Bilirubin,Total < 0.20 mg/dL (0.1-1.2); Blood Urea Nitrogen 7 mg/dL (7-17); Calcium 7.1 mg/dL (8.4-10.2); Carbon Dioxide 22 mmol/L (22-30); Glucose 120 mg/dL (65-100); Total Protein 5.2 g/dL (6.3-8.2); Uric Acid 4.7 mg/dL (3.5-7.6)
[2017-02-26 13:06] LABS: Anion Gap 16 mmol/L; Chloride 98.3 mmol/L (98-107); Potassium 4.2 mmol/L (3.6-5.0); Sodium 132 mmol/L (137-145)
[2017-02-26 14:50] LABS: Alkaline Phosphatase 65 units/L (35-129)
--- NOTE | 2017-02-27 00:23 | Ultrasound Report ---
FINAL REPORT PROCEDURE: US OB LIMITED TECHNIQUE: Real-time transabdominal sonography of the uterus, placenta, amniotic fluid, adnexa, and fetus was performed with image documentation. Measurements were obtained to determine age/size. M-mode Doppler was used to document heartbeat. CPT 45311 HISTORY: decrease mvmt COMPARISON: No prior studies are available for comparison. FINDINGS: There is an intrauterine gestation in cephalic presentation. There is no cardiac activity. Age is indeterminate. Placenta is right lateral and grade 1. IMPRESSION: Nonviable intrauterine . There is no cardiac activity.
[2017-02-27] MEDS: NORMODYNE 200 MG in D5W 160 ML IV SCH ×3 (03:35→10:00)
--- NOTE | 2017-02-27 09:03 | Progress Note ---
Assessment and Plan - Patient Problems (1) Hypertension in , preeclampsia Current Visit: Yes Status: Acute Qualifiers: Trimester: unspecified trimester Qualified Code(s): O14.90 - Unspecified pre-eclampsia, unspecified trimester (2) demise Current Visit: Yes Status: Acute Plan to address problem: appropriate manage blood pressures with po and IV antihypertensive confirmatory u/s pending will need to transfer to L&D for delivery Subjective - Subjective Date of service: 02/27/17 Principal diagnosis: Pre-Ecclampsia Interval history: During the night, the L&D attempted to obtain doptones but was unsuccessful. Bedside ultrasound was obtained which confirmed a demise. Patient informed of the results today. She currently on labetalol po and IV with titration of meds. 24hr urine protein elevated at 459mg. [facility] labs wnl. Patient requests that ultrasound be repeated. She complains of being weak. Will need to transfer patient to L&D for delivery once followup ultrasound confirms the findings. Patient reports: new complaints (no movement) Objective - Vital Signs Vital Signs: Vital Signs - 12hr 02/26/17 02/26/17 02/26/17 21:01 21:41 23:21 Temperature Pulse Rate 80 82 83 Pulse Rate [ From Monitor] Respiratory 15 18 Rate Blood Pressure 166/98 164/95 167/96 O2 Sat by Pulse 94 96 Oximetry 02/26/17 02/26/17 02/26/17 23:31 23:34 23:41 Temperature Pulse Rate 83 85 82 Pulse Rate [ From Monitor] Respiratory 20 19 Rate Blood Pressure 166/96 167/96 166/96 O2 Sat by Pulse 94 97 Oximetry 02/26/17 02/27/17 02/27/17 23:51 00:00 00:11 Temperature 98.3 F Pulse Rate 81 81 82 Pulse Rate [ 86 From Monitor] Respiratory 24 16 18 Rate Blood Pressure 162/99 160/96 160/96 O2 Sat by Pulse 96 97 97 Oximetry 02/27/17 02/27/17 02/27/17 00:21 00:31 00:41 Temperature Pulse Rate 78 79 80 Pulse Rate [ From Monitor] Respiratory 31 H 18 21 Rate Blood Pressure 162/94 156/91 156/91 O2 Sat by Pulse 97 92 97 Oximetry 02/27/17 02/27/17 02/27/17 00:51 01:00 01:11 Temperature Pulse Rate 80 82 82 Pulse Rate [ From Monitor] Respiratory 16 15 17 Rate Blood Pressure 157/94 154/91 154/91 O2 Sat by Pulse 97 93 97 Oximetry 02/27/17 02/27/17 02/27/17 01:21 01:31 01:41 Temperature Pulse Rate 88 84 82 Pulse Rate [ From Monitor] Respiratory 16 15 17 Rate Blood Pressure 157/94 132/74 132/74 O2 Sat by Pulse 98 94 96 Oximetry 02/27/17 02/27/17 02/27/17 01:51 02:00 02:11 Temperature Pulse Rate 77 83 81 Pulse Rate [ From Monitor] Respiratory 16 16 17 Rate Blood Pressure 152/91 156/96 156/96 O2 Sat by Pulse 96 92 96 Oximetry 02/27/17 02/27/17 02/27/17 02:21 02:30 02:41 Temperature Pulse Rate 80 83 99 H Pulse Rate [ From Monitor] Respiratory 16 19 21 Rate Blood Pressure 163/92 159/96 159/96 O2 Sat by Pulse 96 92 99 Oximetry 02/27/17 02/27/17 02/27/17 02:51 03:01 03:11 Temperature Pulse Rate 87 83 Pulse Rate [ From Monitor] Respiratory 21 19 18 Rate Blood Pressure 158/91 158/91 158/91 O2 Sat by Pulse 98 98 97 Oximetry 02/27/17 02/27/17 02/27/17 03:21 03:31 03:35 Temperature Pulse Rate 85 81 80 Pulse Rate [ From Monitor] Respiratory 20 17 Rate Blood Pressure 165/95 156/94 156/94 O2 Sat by Pulse 96 93 Oximetry 02/27/17 02/27/17 02/27/17 03:41 03:51 04:00 Temperature 97.8 F Pulse Rate 78 79 79 Pulse Rate [ 78 From Monitor] Respiratory 16 16 17 Rate Blood Pressure 156/94 165/95 159/96 O2 Sat by Pulse 97 96 98 Oximetry 02/27/17 02/27/17 02/27/17 04:11 04:21 04:30 Temperature Pulse Rate 81 79 81 Pulse Rate [ From Monitor] Respiratory 15 15 18 Rate Blood Pressure 159/96 161/89 154/91 O2 Sat by Pulse 96 96 92 Oximetry 02/27/17 02/27/17 02/27/17 04:41 04:50 04:51 Temperature Pulse Rate 79 98 H 82 Pulse Rate [ From Monitor] Respiratory 16 30 H Rate Blood Pressure 154/91 157/90 157/90 O2 Sat by Pulse 96 96 Oximetry 02/27/17 02/27/17 02/27/17 05:00 05:11 05:21 Temperature Pulse Rate 79 77 78 Pulse Rate [ From Monitor] Respiratory 33 H 31 H 32 H Rate Blood Pressure 166/96 166/96 175/97 O2 Sat by Pulse 92 96 95 Oximetry 02/27/17 02/27/17 02/27/17 05:31 05:41 05:51 Temperature Pulse Rate 78 86 84 Pulse Rate [ From Monitor] Respiratory 29 H 39 H 33 H Rate Blood Pressure 161/89 161/89 168/94 O2 Sat by Pulse 92 96 96 Oximetry 02/27/17 02/27/17 02/27/17 06:01 06:11 06:21 Temperature Pulse Rate 87 80 76 Pulse Rate [ From Monitor] Respiratory 36 H 16 14 Rate Blood Pressure 168/94 168/94 177/105 O2 Sat by Pulse 98 97 97 Oximetry 02/27/17 02/27/17 02/27/17 06:31 06:41 06:51 Temperature Pulse Rate 77 82 82 Pulse Rate [ From Monitor] Respiratory 18 18 18 Rate Blood Pressure 167/100 167/100 182/104 O2 Sat by Pulse 93 96 97 Oximetry 02/27/17 02/27/17 02/27/17 07:01 07:11 07:20 Temperature Pulse Rate 85 79 81 Pulse Rate [ From Monitor] Respiratory 18 20 19 Rate Blood Pressure 183/99 183/99 183/99 O2 Sat by Pulse 93 98 98 Oximetry 02/27/17 02/27/17 02/27/17 07:31 07:41 07:51 Temperature Pulse Rate 79 88 86 Pulse Rate [ From Monitor] Respiratory 18 19 19 Rate Blood Pressure 183/99 149/82 O2 Sat by Pulse 95 98 97 Oximetry 02/27/17 02/27/17 02/27/17 08:00 08:11 08:16 Temperature 98.3 F Pulse Rate 86 94 H Pulse Rate [ From Monitor] Respiratory 21 22 Rate Blood Pressure 161/95 161/95 O2 Sat by Pulse 89 98 Oximetry 02/27/17 08:21 Temperature Pulse Rate 88 Pulse Rate [ From Monitor] Respiratory 20 Rate Blood Pressure 161/95 O2 Sat by Pulse 97 Oximetry - Labs Labs: Abnormal Labs 02/26/17 02/26/17 02/26/17 12:15 12:15 14:00 WBC 15.0 H MCV 73 L MCH 23 L RDW 15.9 H Sodium 132 L Creatinine 0.6 L Glucose 120 H Calcium 7.1 L D Total Protein 5.2 L D Albumin 2.7 L Ur Total Protein 24 Hr 459.00 H Urine Total Protein 17 H Laboratory Results - last 24 hr 02/26/17 02/26/17 02/26/17 12:15 12:15 14:00 WBC 15.0 H RBC 4.96 Hgb 11.5 Hct 36.0 MCV 73 L MCH 23 L MCHC 32 RDW 15.9 H Plt Count 239 Sodium 132 L Potassium 4.2 Chloride 98.3 Carbon Dioxide 22 Anion Gap 16 BUN 7 Creatinine 0.6 L Estimated GFR > 60 BUN/Creatinine Ratio 11.66 Glucose 120 H Uric Acid 4.7 Calcium 7.1 L D Total Bilirubin < 0.20 AST 13 ALT 12 Alkaline Phosphatase 65 Total Protein 5.2 L D Albumin 2.7 L Albumin/Globulin Ratio 1.1 Urine Total Volume 2700 Ur Total Protein 24 Hr 459.00 H Urine Total Protein 17 H
[2017-02-27] MEDS: PROTONIX PO SCH (09:31)
[2017-02-27] MEDS: PROCARDIA XL PO SCH ×2 (09:32→22:26)
[2017-02-27] MEDS ORDERED: NORMODYNE PO SCH ×2 (10:00→12:00)
--- NOTE | 2017-02-27 10:08 | Ultrasound Report ---
OB LIMITED INDICATION: demise. COMPARISON: Yesterday. TECHNIQUE: Transabdominal grayscale ultrasound with Doppler interrogation. Gestation: Meyer position: Cephalic Heart Rate: 0 BPM CONCLUSION: No heart tones obtainable, supporting clinical suspicion of demise. Please correlate.
[2017-02-27] MEDS ORDERED: XANAX PO PRN (10:54)
[2017-02-27] MEDS: CATAPRES PO SCH ×2 (11:06→16:55)
--- NOTE | 2017-02-27 11:20 | Progress Note ---
Assessment and Plan - Patient Problems (1) Hypertension in , preeclampsia Current Visit: Yes Status: Acute Qualifiers: Trimester: unspecified trimester Qualified Code(s): O14.90 - Unspecified pre-eclampsia, unspecified trimester Plan to address problem: demise. Start oral therapies, so as to wean off labetalol infusion. Once off labetalol with appropriate BP, transfer to labor and delivery for deliver of the fetus. (2) demise Current Visit: Yes Status: Acute Plan to address problem: As per my discussions with OBGYN, plan to transfer to labor and delivery once she is off the infusions. Patient and her mother, who I spoke to over the phone, deny any family history of venous-thromboembolism or mid-trimester miscarriages (3) Obesity Current Visit: Yes Status: Acute Qualifiers: Obesity type: O Obesity severity: O Plan to address problem: Lifestyle modifications and weight loss on discharge (4) Leukocytosis, unspecified Current Visit: Yes Status: Acute Qualifiers: Leukocytosis type: L Plan to address problem: Continue to monitor trends/counts and for fevers. This could be a harbinger of infection (5) Hyponatremia Current Visit: Yes Status: Acute Plan to address problem: Monitor closely. Probably secondary to free water infusion. Subjective Date of service: 02/27/17 Principal diagnosis: Pre-Ecclampsia Interval history: demise as per OBGYN. Seen and examined. Vitals, labs, medications and chart reviewed. Denies any chest pain, no shortness of breath, no abdominal pain. Objective Vital Signs - 12hr 02/26/17 02/26/17 02/26/17 23:21 23:31 23:34 Temperature Pulse Rate 83 83 85 Pulse Rate [ From Monitor] Respiratory 18 20 Rate Blood Pressure 167/96 166/96 167/96 O2 Sat by Pulse 96 94 Oximetry 02/26/17 02/26/17 02/27/17 23:41 23:51 00:00 Temperature 98.3 F Pulse Rate 82 81 81 Pulse Rate [ 86 From Monitor] Respiratory 19 24 16 Rate Blood Pressure 166/96 162/99 160/96 O2 Sat by Pulse 97 96 97 Oximetry 02/27/17 02/27/17 02/27/17 00:11 00:21 00:31 Temperature Pulse Rate 82 78 79 Pulse Rate [ From Monitor] Respiratory 18 31 H 18 Rate Blood Pressure 160/96 162/94 156/91 O2 Sat by Pulse 97 97 92 Oximetry 02/27/17 02/27/17 02/27/17 00:41 00:51 01:00 Temperature Pulse Rate 80 80 82 Pulse Rate [ From Monitor] Respiratory 16 15 Rate Blood Pressure 156/91 157/94 154/91 O2 Sat by Pulse 97 97 93 Oximetry 02/27/17 02/27/17 02/27/17 01:11 01:21 01:31 Temperature Pulse Rate 82 88 84 Pulse Rate [ From Monitor] Respiratory 17 16 15 Rate Blood Pressure 154/91 157/94 132/74 O2 Sat by Pulse 97 98 94 Oximetry 02/27/17 02/27/17 02/27/17 01:41 01:51 02:00 Temperature Pulse Rate 82 77 83 Pulse Rate [ From Monitor] Respiratory 17 16 16 Rate Blood Pressure 132/74 152/91 156/96 O2 Sat by Pulse 96 96 92 Oximetry 02/27/17 02/27/17 02/27/17 02:11 02:21 02:30 Temperature Pulse Rate 81 80 83 Pulse Rate [ From Monitor] Respiratory 17 16 19 Rate Blood Pressure 156/96 163/92 159/96 O2 Sat by Pulse 96 96 92 Oximetry 02/27/17 02/27/17 02/27/17 02:41 02:51 03:01 Temperature Pulse Rate 99 H 87 Pulse Rate [ From Monitor] Respiratory 21 19 Rate Blood Pressure 159/96 158/91 158/91 O2 Sat by Pulse 99 98 98 Oximetry 02/27/17 02/27/17 02/27/17 03:11 03:21 03:31 Temperature Pulse Rate 83 85 81 Pulse Rate [ From Monitor] Respiratory 18 20 17 Rate Blood Pressure 158/91 165/95 156/94 O2 Sat by Pulse 97 96 93 Oximetry 02/27/17 02/27/17 02/27/17 03:35 03:41 03:51 Temperature Pulse Rate 80 78 79 Pulse Rate [ From Monitor] Respiratory 16 16 Rate Blood Pressure 156/94 156/94 165/95 O2 Sat by Pulse 97 96 Oximetry 02/27/17 02/27/17 02/27/17 04:00 04:11 04:21 Temperature 97.8 F Pulse Rate 79 81 79 Pulse Rate [ 78 From Monitor] Respiratory 15 15 Rate Blood Pressure 159/96 159/96 161/89 O2 Sat by Pulse 98 96 96 Oximetry 02/27/17 02/27/17 02/27/17 04:30 04:41 04:50 Temperature Pulse Rate 81 79 98 H Pulse Rate [ From Monitor] Respiratory 18 16 Rate Blood Pressure 154/91 154/91 157/90 O2 Sat by Pulse 92 96 Oximetry 02/27/17 02/27/17 02/27/17 04:51 05:00 05:11 Temperature Pulse Rate 82 79 77 Pulse Rate [ From Monitor] Respiratory 30 H 33 H 31 H Rate Blood Pressure 157/90 166/96 166/96 O2 Sat by Pulse 96 92 96 Oximetry 02/27/17 02/27/17 02/27/17 05:21 05:31 05:41 Temperature Pulse Rate 78 78 86 Pulse Rate [ From Monitor] Respiratory 32 H 29 H 39 H Rate Blood Pressure 175/97 161/89 161/89 O2 Sat by Pulse 95 92 96 Oximetry 02/27/17 02/27/17 02/27/17 05:51 06:01 06:11 Temperature Pulse Rate 84 87 80 Pulse Rate [ From Monitor] Respiratory 33 H 36 H 16 Rate Blood Pressure 168/94 168/94 168/94 O2 Sat by Pulse 96 98 97 Oximetry 02/27/17 02/27/17 02/27/17 06:21 06:31 06:41 Temperature Pulse Rate 76 77 82 Pulse Rate [ From Monitor] Respiratory 14 18 18 Rate Blood Pressure 177/105 167/100 167/100 O2 Sat by Pulse 97 93 96 Oximetry 02/27/17 02/27/17 02/27/17 06:51 07:01 07:11 Temperature Pulse Rate 82 85 79 Pulse Rate [ From Monitor] Respiratory 18 18 20 Rate Blood Pressure 182/104 183/99 183/99 O2 Sat by Pulse 97 93 98 Oximetry 02/27/17 02/27/17 02/27/17 07:20 07:31 07:41 Temperature Pulse Rate 81 79 88 Pulse Rate [ From Monitor] Respiratory 19 18 19 Rate Blood Pressure 183/99 183/99 O2 Sat by Pulse 98 95 98 Oximetry 02/27/17 02/27/17 02/27/17 07:51 08:00 08:11 Temperature Pulse Rate 86 86 94 H Pulse Rate [ From Monitor] Respiratory 19 21 22 Rate Blood Pressure 149/82 161/95 161/95 O2 Sat by Pulse 97 89 98 Oximetry 02/27/17 02/27/17 02/27/17 08:16 08:21 08:30 Temperature 98.3 F Pulse Rate 88 92 H Pulse Rate [ From Monitor] Respiratory 20 16 Rate Blood Pressure 161/95 149/120 O2 Sat by Pulse 97 91 Oximetry 02/27/17 02/27/17 02/27/17 08:41 08:51 09:00 Temperature Pulse Rate 96 H 93 H 89 Pulse Rate [ From Monitor] Respiratory 26 H 20 20 Rate Blood Pressure 163/99 163/99 168/96 O2 Sat by Pulse 91 100 92 Oximetry 02/27/17 02/27/17 02/27/17 09:11 09:21 09:31 Temperature Pulse Rate 100 H 88 84 Pulse Rate [ From Monitor] Respiratory 13 20 15 Rate Blood Pressure 168/96 168/96 160/100 O2 Sat by Pulse 98 99 94 Oximetry 02/27/17 02/27/17 02/27/17 09:41 09:51 10:00 Temperature Pulse Rate 82 82 88 Pulse Rate [ From Monitor] Respiratory 14 20 Rate Blood Pressure 160/100 160/100 178/105 O2 Sat by Pulse 99 98 Oximetry 02/27/17 02/27/17 02/27/17 10:01 10:11 10:21 Temperature Pulse Rate 77 77 78 Pulse Rate [ From Monitor] Respiratory 15 10 L 17 Rate Blood Pressure 171/98 171/98 178/103 O2 Sat by Pulse 95 98 98 Oximetry 02/27/17 02/27/17 02/27/17 10:31 10:41 10:51 Temperature Pulse Rate 81 88 76 Pulse Rate [ From Monitor] Respiratory 16 13 13 Rate Blood Pressure 173/101 173/101 171/98 O2 Sat by Pulse 94 99 98 Oximetry 02/27/17 02/27/17 11:06 11:07 Temperature Pulse Rate 76 93 H Pulse Rate [ From Monitor] Respiratory Rate Blood Pressure 165/105 165/103 O2 Sat by Pulse Oximetry Constitutional: no acute distress, alert Eyes: non-icteric ENT: oropharynx moist Neck: supple, no lymphadenopathy Effort: normal Ascultation: Bilateral: clear Cardiovascular: regular rate and rhythm Gastrointestinal: normoactive bowel sounds, soft, non-tender, non-distended Integumentary: normal Extremities: no cyanosis, no edema, pink and warm, edema Neurologic: normal mental status, non-focal exam, pupils equal and round, motor strength normal and Psychiatric: mood appropriate, affect normal CBC and BMP: 02/26/17 12:15 02/26/17 12:15 Abnormal lab findings: Abnormal Labs 02/26/17 02/26/17 02/26/17 12:15 12:15 14:00 WBC 15.0 H MCV 73 L MCH 23 L RDW 15.9 H Sodium 132 L Creatinine 0.6 L Glucose 120 H Calcium 7.1 L D Total Protein 5.2 L D Albumin 2.7 L Ur Total Protein 24 Hr 459.00 H Urine Total Protein 17 H
--- NOTE | 2017-02-27 16:40 | Event Note ---
Date: 02/27/17 Received call from [facility] stating that labetalol drip has been off since 11 am and patients blood pressure has been within normal range. 120-130/70-90. Will now proceed with transfer to L&D and commence with induction for IUFD at 22 weeks.
[2017-02-27] MEDS: LACTATED RINGERS 1,000 ML IV SCH ×2 (16:54→20:49)
[2017-02-27] MEDS ORDERED: AMBIEN PO PRN (19:43)
[2017-02-27] MEDS ORDERED: MYLICON PO PRN (19:43)
[2017-02-27] MEDS ORDERED: SUDAFED PO PRN (19:43)
[2017-02-27] MEDS ORDERED: ROBITUSSIN DM PO PRN (19:43)
[2017-02-27] MEDS ORDERED: TYLENOL PO PRN (19:43)
[2017-02-27] MEDS ORDERED: STADOL IV PRN (19:43)
[2017-02-27] MEDS ORDERED: SENOKOT S PO PRN (19:43)
[2017-02-27] MEDS ORDERED: ZOFRAN IV PRN (19:43)
[2017-02-27] MEDS ORDERED: COLACE PO PRN (19:43)
[2017-02-27] MEDS ORDERED: DILAUDID IV PRN (19:43)
[2017-02-27] MEDS: CYTOTEC VG SCH ×2 (20:52→21:47)
[2017-02-28] MEDS ORDERED: CYTOTEC VG SCH (01:08)
[2017-02-28] MEDS ORDERED: PITOCin/NS 20 UNIT/1000ML DRIP 20 UNITS/1,000 ML BAG IV SCH (01:40)
[2017-02-28] MEDS ORDERED: PITOCin/NS 20 UNIT/1000ML DRIP 20,000 MILLIUNITS/1,000 ML BAG IV ONE (01:43)
--- NOTE | 2017-02-28 03:56 | Procedure Note ---
OB Delivery Note - Delivery Date of Delivery: 02/28/17 Surgeon: AMAURI BURRIS Estimated blood loss: 200cc - Vaginal Delivery presentation: vertex Delivery induction: misoprostol Delivery monitor: none Route of delivery: Delivery placenta: spontaneous Episiotomy: none Delivery laceration: none Delivery comments: Nonviable female delivered over intact perineum. Placenta delivered spontaneously and intact. Patient tolerated procedure well. - A at 1 minute: 0 at 5 minutes: 0 Gender: Female
[2017-02-28] MEDS ORDERED: DULCOLAX PR PRN (04:37)
[2017-02-28] MEDS ORDERED: PHENERGAN PR PRN (04:37)
[2017-02-28] MEDS ORDERED: TUCKS PAD TP PRN (04:37)
[2017-02-28] MEDS ORDERED: SODIUM CHLORIDE FLUSH SYRINGE 10 ML IV NR (04:37)
[2017-02-28] MEDS ORDERED: LANSINOH TP PRN (04:37)
[2017-02-28] MEDS ORDERED: NORCO 5/325 PO PRN (04:37)
[2017-02-28] MEDS ORDERED: PHENERGAN PO PRN (04:37)
[2017-02-28] MEDS ORDERED: BENADRYL PO PRN (04:37)
[2017-02-28] MEDS ORDERED: MILK OF MAGNESIA PO PRN (04:37)
[2017-02-28] MEDS ORDERED: TYLENOL PO PRN (04:37)
[2017-02-28] MEDS ORDERED: DERMOPLAST TP PRN (04:37)
[2017-02-28] MEDS ORDERED: ZOFRAN IV PRN (04:37)
[2017-02-28] MEDS: MOTRIN PO SCH ×3 (04:48→18:48)
[2017-02-28] MEDS ORDERED: NORMODYNE PO SCH (10:00)
[2017-02-28] MEDS ORDERED: COLACE PO SCH (10:00)
[2017-02-28] MEDS ORDERED: PRENATAL VITAMIN PO SCH ×2 (10:00)
[2017-02-28] MEDS: PROCARDIA XL PO SCH (14:34)
[2017-02-28 15:40] LABS: Hematocrit 39.1 % (30.3-42.9); Hemoglobin 12.4 gm/dl (10.1-14.3)
--- NOTE | 2017-02-28 17:47 | Discharge Summary ---
Providers - Providers Date of Admission: 02/24/17 18:34 Date of discharge: 02/28/17 Attending physician: AMAURI BURRIS Primary care physician: SUSAN HILLMAN MD Hospitalization Condition at discharge: Good Disposition: STILL A PATIENT Plan - Discharge Medications Prescriptions: Ibuprofen [Motrin] 800 mg PO Q8HR PRN #40 tablet PRN Reason: Pain NIFEdipine XL [Procardia Xl] 90 mg PO BID #60 tablet Pnv with Ca,No.72/Iron/FA [ Plus Tablet] 1 each PO QDAY #30 tablet - Provider Discharge Summary Additional instructions: [] Smoking cessation referral if applicable(refer to patient education folder for contact #) [] Refer to [facility]'s [facility] Booklet Call your doctor immediately for: * Fever > 100.5 * Heavy vaginal bleeding ( >1 pad per hour) * Severe persistent headache * Shortness of breath * Reddened, hot, painful area to leg or breast * Drainage or odor from incision. * Keep incision clean and dry at all times and follow doctor's instructions regarding bathing/showering - Follow up plan Follow up: PRIMARY CAREMD [Primary Care Provider] - 3-5 Days
[2017-02-28 19:27] VITALS: BP 151/78
== END 2017-02-28 19:15 | disposition home or self-care (01) | DRG 774 ==
LOC: ED 16:03 → LD 18:34 → CC1 22:59 → LD 02-27 16:55 → OB 02-28 04:08
PROVIDERS: ADMIT Obstetrics & Gynecology; ATTEND Obstetrics & Gynecology
PROC: 10E0XZZ Delivery of Products of Conception, External Approach (ICD-10-PCS; principal; 2017-02-28)
PROC: 3E0P7GC Introduction of Other Therapeutic Substance into Female Reproductive, Via Natural or Artificial Opening (ICD-10-PCS; 2017-02-28)
DX: O36.4XX0 Maternal care for intrauterine death, not applicable or unspecified (principal); O14.92 Unspecified pre-eclampsia, second trimester; O99.212 Obesity complicating pregnancy, second trimester; E66.01 Morbid (severe) obesity due to excess calories; O99.282 Endocrine, nutritional and metabolic diseases complicating pregnancy, second trimester; E87.1 Hypo-osmolality and hyponatremia; D72.829 Elevated white blood cell count, unspecified; Z68.41 Body mass index [BMI] 40.0-44.9, adult
CPT/HCPCS: 36415; 76815; 80048; 80053; 80074; 81001; 84156; 84550; 84702; 85014; 85018; 85025; 85027; 85384; 86850; 86900; 86901; 88305; 96365; 96375; 96376; J0360; J2405; J2590; J3475; J7120